=== PATIENT | female | born 1960 | race Caucasian/White ===

== ENCOUNTER 2019-05-21 05:54 | Day surgery (SDC) | payer OTHER ==
[2019-05-21] MEDS ORDERED: fentaNYL 100 MCG/2 ML SDV IV ONE ×3 (05:55→06:58)
[2019-05-21] MEDS ORDERED: Midazolam 1 MG/ML 2 ML SDV IV ONE ×7 (05:55→07:09)
[2019-05-21] MEDS ORDERED: Dextrose 5%-0.45% NaCl 1,000 ML IV SCH (06:15)
[2019-05-21] MEDS ORDERED: Midazolam 1 MG/ML 2 ML SDV ONE (06:26)
[2019-05-21] MEDS ORDERED: fentaNYL 100 MCG/2 ML SDV ONE (06:26)
--- NOTE | 2019-05-21 14:26 | OR ---
DATE: 05/21/2019 PREOPERATIVE DIAGNOSES: Screening colonoscopy and constipation. POSTOPERATIVE DIAGNOSES: Screening colonoscopy and constipation. PROCEDURE: Total colonoscopy. ANESTHESIA: Conscious sedation with IV Versed and fentanyl. SPECIMEN: None. OPERATIVE FINDINGS: Normal colonoscopy. RECOMMENDATION: Followup colonoscopy in 10 years for screening. PROCEDURE IN DETAIL: After adequate preparation, a colonoscope was inserted into the rectum. After multiple maneuvers; however, I could not negotiate the lower portion of the sigmoid just above the rectosigmoid junction. Multiple maneuvers were tried, and I simply could not advance the scope safely. I changed this to a pediatric scope and was able to with some manipulation get around this fixed site in the sigmoid. At that point, then the scope was easily advanced all the way to the cecum. Confirmation of the cecum was made by visualization of the ileocecal valve and palpation in the right lower quadrant. There was also a visible light in the right lower quadrant. The bowel prep was very good. On withdrawal of the scope, no abnormalities were noted. A photograph of the ileocecal valve had been taken. Anal and rectal examination reveals large external hemorrhoids. No significant internal hemorrhoids. Air was suctioned from the colon and the scope removed. [facility] /[id number]
== END 2019-05-21 09:21 | disposition home or self-care (01) ==
LOC: DL.ENDO 05:54
PROVIDERS: ATTEND Surgery
DX: K59.00 Constipation, unspecified (principal); K64.4 Residual hemorrhoidal skin tags; Z85.828 Personal history of other malignant neoplasm of skin; Z92.21 Personal history of antineoplastic chemotherapy; Z92.3 Personal history of irradiation; Z79.899 Other long term (current) drug therapy
CPT/HCPCS: G0121; J2250; J3010; J7042

== ENCOUNTER 2020-09-21 06:50 | Day surgery (SDC) | payer OTHER ==
[~2020-09-21 06:50] MED LIST: Dextrose 5%-0.45% NaCl 1,000 ML IV SCH; Midazolam 1 MG/ML 2 ML SDV ONE; fentaNYL 100 MCG/2 ML SDV ONE
[2020-09-21] MEDS ORDERED: Midazolam 1 MG/ML 2 ML SDV IV ONE ×8 (06:51→08:05)
[2020-09-21] MEDS ORDERED: fentaNYL 100 MCG/2 ML SDV IV ONE ×4 (06:51→08:03)
[2020-09-21] MEDS ORDERED: Midazolam 1 MG/ML 2 ML SDV ONE (08:05)
--- NOTE | 2020-09-21 13:22 | OR ---
DATE: 09/21/2020 PREOPERATIVE DIAGNOSIS: Rectal bleeding and history of prior anal cancer. POSTOPERATIVE DIAGNOSIS: Rectal bleeding and history of prior anal cancer. PROCEDURE: Total colonoscopy. ANESTHESIA: Conscious sedation with IV Versed and fentanyl. SPECIMEN: None. OPERATIVE FINDINGS: External hemorrhoids, otherwise normal. RECOMMENDATION: Might consider a hemorrhoidectomy with this patient. She does not have significant internal hemorrhoids and the examination did not reveal any unusual areas that I felt needed biopsy. The rest of the colonoscopy is normal and her followup should be 5 to 10 years. INDICATION FOR PROCEDURE: This 60-year-old female has a history of anal cancer and now has new onset of rectal bleeding with bowel function. PROCEDURE IN DETAIL: After adequate preparation, a colonoscope was inserted into the rectum. This was quite difficult to get through a fixed area of the sigmoid. This is an external fixation adhesion probably from her prior surgeries, but I was able to get the scope finally through the sigmoid and then it was easy to pass the scope all the way to the cecum. Confirmation of the cecum was made by visualization of the ileocecal valve. The bowel prep was excellent. On withdrawal of the scope, no abnormalities were noted. I took a photograph of the ileocecal valve and the anal canal. Air was suctioned from the colon, and the scope removed. [facility] /[id number]
== END 2020-09-21 10:35 | disposition home or self-care (01) ==
LOC: DL.ENDO 06:50
PROVIDERS: ATTEND Surgery
DX: K62.5 Hemorrhage of anus and rectum (principal); K64.4 Residual hemorrhoidal skin tags; Z85.048 Personal history of other malignant neoplasm of rectum, rectosigmoid junction, and anus; Z79.899 Other long term (current) drug therapy; Z01.812 Encounter for preprocedural laboratory examination; Z20.822 Contact with and (suspected) exposure to COVID-19
CPT/HCPCS: 45378; 87635; J2250; J3010; J7042; U0002

== ENCOUNTER 2020-11-17 06:53 | Day surgery (SDC) | payer OTHER ==
[~2020-11-17 06:53] MED LIST changes: -Dextrose 5%-0.45% NaCl 1,000 ML IV SCH; +Lactated Ringers 1,000 ML IV SCH; -Midazolam 1 MG/ML 2 ML SDV ONE; -fentaNYL 100 MCG/2 ML SDV ONE
[2020-11-17] MEDS ORDERED: Lactated Ringers 1,000 ML IV ONE (06:54)
[2020-11-17] MEDS ORDERED: Lidocaine 1% with EPINEPHrine 1:100,000 20 ML MDV ONE ×2 (06:54→08:01)
[2020-11-17] MEDS ORDERED: fentaNYL 100 MCG/2 ML SDV IV ONE (06:54)
[2020-11-17] MEDS ORDERED: Ondansetron 4 MG/2 ML SDV IV ONE (06:54)
[2020-11-17] MEDS ORDERED: Ketorolac 30 MG/ML SDV IVPUSH ONE (06:54)
[2020-11-17] MEDS ORDERED: Propofol 200 MG/20 ML SDV IV ONE (06:54)
[2020-11-17] MEDS ORDERED: Dexamethasone 4 MG/ML SDV IV ONE (06:54)
[2020-11-17] MEDS ORDERED: Midazolam 1 MG/ML 2 ML SDV IV ONE (06:54)
[2020-11-17] MEDS: Lactated Ringers 1,000 ML IV SCH ×2 (07:22→07:53)
[2020-11-17] MEDS ORDERED: Lidocaine 1% with EPINEPHrine 1:100,000 30 ML MDV INJECT ONE (08:41)
--- NOTE | 2020-11-17 10:26 | OR ---
DATE: 11/17/2020 PREOPERATIVE DIAGNOSIS: External hemorrhoids. POSTOPERATIVE DIAGNOSIS: External hemorrhoids. PROCEDURE: External hemorrhoidectomy. ANESTHESIA: Local plus MAC. SPECIMEN: Hemorrhoid. INDICATIONS FOR PROCEDURE: This 60-year-old female has multiple external hemorrhoids. She also has a history of anal cancer, undergoing chemotherapy protocol for this. She has some rectal bleeding, but underwent a recent colonoscopy which was normal. PROCEDURE IN DETAIL: After adequate preparation, there were 2 anterior large groups of hemorrhoids that were able to be excised as 1 specimen. 1% Xylocaine was used to infiltrate a perianal block. The external skin was cut in a thalia shape and then carried down into the upper part of the anal canal. The entire hemorrhoid complex were removed as 1. Hemostasis was controlled with cautery. 4-0 Vicryl sutures were used to close the deeper layer of tissue and the skin was closed with interrupted 4-0 Vicryl. This seemed to be adequate. There is one posterior small hemorrhoid that is left. I decided to leave that since this seems to be really adequate to clear this up. The patient was taken to recovery room. [facility] /[id number]
== END 2020-11-17 10:40 | disposition home or self-care (01) ==
LOC: DL.SDS 06:53
PROVIDERS: ATTEND Surgery
DX: K64.4 Residual hemorrhoidal skin tags (principal); I10 Essential (primary) hypertension; E03.9 Hypothyroidism, unspecified; E66.9 Obesity, unspecified; Z68.30 Body mass index [BMI] 30.0-30.9, adult; Z01.812 Encounter for preprocedural laboratory examination; Z20.822 Contact with and (suspected) exposure to COVID-19; Z85.048 Personal history of other malignant neoplasm of rectum, rectosigmoid junction, and anus; Z79.890 Hormone replacement therapy; Z79.899 Other long term (current) drug therapy
CPT/HCPCS: 00902; J1100; J1885; J2250; J2405; J2704; J3010; J7120; U0002

== ENCOUNTER 2021-05-22 17:26 | Emergency (ER) | payer OTHER ==
--- NOTE | 2021-05-22 20:17 | EDM.PDOC ---
ED HPI GENERAL MEDICAL PROBLEM - General Chief Complaint: Respiratory Problem Stated Complaint: COVID TEST Time Seen by Provider: 05/22/21 19:30 Source of Information: Reports: Patient, RN History Limitations: Reports: No Limitations - History of Present Illness INITIAL COMMENTS - FREE TEXT/NARRATIVE: ED requesting COVID testing, Cough only sx but exposure through grandchild who was exposed at school. No fever No nausea or vomiting. Onset sx 3 days. Bilateral Generalized Pain Score (Numeric/FACES): 4 - Related Data Allergies Allergy/AdvReac Type Severity Reaction Status Date / Time No Known Allergies Allergy Verified 11/17/20 07:21 Home Meds: Home Meds Levothyroxine [Sythroid] 100 mcg PO DAILY 07/28/18 [History] Venlafaxine HCl [Venlafaxine ER] 75 mg PO TID 07/28/18 [History] buPROPion [buPROPion XL] 150 mg PO BID 07/28/18 [History] hydroCHLOROthiazide [Hydrochlorothiazide] 25 mg PO DAILY 07/28/18 [History] Past Medical History HEENT History: Reports: Impaired Vision, Other (See Below) Other HEENT History: WEARS CONTACT LENS Cardiovascular History: Reports: Hypertension Respiratory History: Reports: None Gastrointestinal History: Reports: Chronic Constipation, Chronic Diarrhea, GERD, Hemorrhoids, Other (See Below) Other Gastrointestinal History: urgency with diarrhea Genitourinary History: Reports: None 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: Musculoskeletal History: Reports: None, Fracture, Other (See Below) Other Musculoskeletal History: CONTACTURE IN [place] Neurological History: Reports: None Psychiatric History: Reports: Autism, Depression Endocrine/Metabolic History: Reports: Hypothyroidism Hematologic History: Reports: None Immunologic History: Reports: None Oncologic (Cancer) History: Reports: Other (See Below) Other Oncologic History: anal cancer Dermatologic History: Reports: None - Infectious Disease History Infectious Disease History: Reports: Chicken Pox, Measles, Mumps - Past Surgical History Head Surgeries/Procedures: Reports: None HEENT Surgical History: Reports: None Cardiovascular Surgical History: Reports: None Respiratory Surgical History: Reports: None GI Surgical History: Reports: Cholecystectomy, Colonoscopy Female Surgical History: Reports: Breast Biopsy, Breast Reduction, Hysterectomy, Other (See Below) Other Female Surgeries/Procedures: granulated cyst to R) breast Endocrine Surgical History: Reports: None Neurological Surgical History: Reports: None Musculoskeletal Surgical History: Reports: None Oncologic Surgical History: Reports: None Dermatological Surgical History: Reports: None Social & Family History - Tobacco Use Tobacco Use Status *Q: Never Tobacco User - Caffeine Use Caffeine Use: Reports: Coffee Caffeine Use Comment: 3 cups daily - Recreational Drug Use Recreational Drug Use: No ED ROS GENERAL - Review of Systems Review Of Systems: Comprehensive ROS is negative, except as noted in HPI. ED EXAM, GENERAL - Physical Exam Exam: See Below Exam Limited By: No Limitations General Appearance: Alert, No Apparent Distress Eye Exam: Bilateral Eye: EOMI Ears: Normal External Exam Nose: Normal Inspection Throat/Mouth: Normal Inspection Head: Atraumatic, Other Neck: Normal Inspection. No: Lymphadenopathy (L), Lymphadenopathy (R) Respiratory/Chest: No Respiratory Distress, Lungs Clear, Normal Breath Sounds, Other (rare dry cough) GI/Abdominal: Normal Bowel Sounds Extremities: Normal Inspection Neurological: Alert, Oriented, Normal Cognition, Normal Gait Psychiatric: Normal Affect, Normal Mood Skin Exam: Warm, Dry, Intact Course - Vital Signs Last Recorded V/S: Last Vital Signs Temp 98.1 F 05/22/21 18:25 Pulse 106 H 05/22/21 18:25 Resp 20 05/22/21 18:25 BP 118/72 05/22/21 18:25 Pulse Ox 98 05/22/21 18:25 - Orders/Labs/Meds Labs: Laboratory Tests 05/22/21 Range/Units 18:05 SARS-CoV-2 RNA (DILIA) Negative (NEGATIVE) Departure - Departure Time of Disposition: 20:14 Disposition: Home, Self-Care 01 Condition: Good Clinical Impression: Cough with exposure to COVID-19 virus - Discharge Information Instructions: COVID-19 Frequently Asked Questions, COVID-19: How to Protect Yourself and Others - CDC, COVID-19: Quarantine vs. Isolation - CDC (08/25/2020) Forms: ED Department Discharge Additional Instructions: symptom management with muccinex/ robitussin for cough increase fluids humidification continue isolation retest later this week at local Drive through or local clinic urgent follow up if SEVERE difficulty breathing limit use of ibuprofen tylenol 500mg every 4 hours as needed for cough Sepsis Event Note (ED) - Evaluation Sepsis Screening Result: No Definite Risk
== END 2021-05-22 20:20 | disposition home or self-care (01) ==
LOC: DL.ED 17:26
DX: R05 Cough (principal); E03.9 Hypothyroidism, unspecified; Z79.899 Other long term (current) drug therapy; Z20.822 Contact with and (suspected) exposure to COVID-19
CPT/HCPCS: 99283; U0002

== ENCOUNTER 2021-06-30 12:07 | Emergency (ER) | payer OTHER ==
[2021-06-30] MEDS ORDERED: Iopamidol 755 Mg/ML 100 ML Bottle IVPUSH ONE (12:09)
--- NOTE | 2021-06-30 12:28 | EDM.PDOC ---
ED HPI GENERAL MEDICAL PROBLEM - General Stated Complaint: TO ER FROM [facility] Time Seen by Provider: 06/30/21 12:27 Source of Information: Reports: Patient, Provider, RN, RN Notes Reviewed History Limitations: Reports: No Limitations - History of Present Illness INITIAL COMMENTS - FREE TEXT/NARRATIVE: Sandrita is a 61 y/o female who presents to the ED from same day surgery following administration of monoclonal antibodies for COVID-19. The patient reports her symptoms began five days ago, including shortness of breath, fatigue, muscle aches, and cough, and have since worsened in that time. She tested positive for a COVID-19 infection yesterday in the clinic. The patient states she did not become more short of breath during or following the monoclonal antibody treatment. She notes her is home with similar symptoms and they have been caring for their four y/o granddaughter who has not yet experienced similar symptoms. She denies fever, shaking chills, vision changes, dizziness, chest pain/pressure, palpitations, nausea, vomiting, abdominal pain, or diarrhea. She has taken no medications for her symptoms. The patient denies tobacco, alcohol, or recreational drug use. - Related Data Allergies Allergy/AdvReac Type Severity Reaction Status Date / Time No Known Allergies Allergy Verified 06/30/21 14:01 Home Meds: Home Meds Venlafaxine HCl [Venlafaxine ER] 75 mg PO TID 07/28/18 [History] hydroCHLOROthiazide [Hydrochlorothiazide] 25 mg PO DAILY 07/28/18 [History] LORazepam [Ativan] 0.5 mg PO ASDIRECTED 06/30/21 [History] Levothyroxine 112 mcg PO ACBREAKFAST 06/30/21 [History] Oxybutynin Chloride [Ditropan Xl] 10 mg PO DAILY 06/30/21 [History] buPROPion HCL [Bupropion HCl Sr] 300 mg PO DAILY 06/30/21 [History] busPIRone HCl [busPIRone] 30 mg PO DAILY 06/30/21 [History] Past Medical History HEENT History: Reports: Impaired Vision, Other (See Below) Other HEENT History: WEARS CONTACT LENS Cardiovascular History: Reports: Hypertension Respiratory History: Reports: None, SOB Gastrointestinal History: Reports: Chronic Constipation, Chronic Diarrhea, GERD, Hemorrhoids, Other (See Below) Other Gastrointestinal History: urgency with diarrhea Genitourinary History: Reports: None 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: Musculoskeletal History: Reports: None, Fracture, Other (See Below) Other Musculoskeletal History: CONTACTURE IN [place] Neurological History: Reports: None Psychiatric History: Reports: Anxiety, Depression Endocrine/Metabolic History: Reports: Hypothyroidism Hematologic History: Reports: None Immunologic History: Reports: None Oncologic (Cancer) History: Reports: Other (See Below) Other Oncologic History: anal cancer Dermatologic History: Reports: None - Infectious Disease History Infectious Disease History: Reports: Chicken Pox, Measles, Mumps, Novel Coronavirus - Past Surgical History Head Surgeries/Procedures: Reports: None HEENT Surgical History: Reports: None Cardiovascular Surgical History: Reports: None Respiratory Surgical History: Reports: None GI Surgical History: Reports: Cholecystectomy, Colonoscopy Other GI Surgeries/Procedures: Hemorrhoidectomy Female Surgical History: Reports: Breast Biopsy, Breast Reduction, Hysterectomy, Other (See Below) Other Female Surgeries/Procedures: granulated cyst to R) breast Endocrine Surgical History: Reports: None Neurological Surgical History: Reports: None Musculoskeletal Surgical History: Reports: None Oncologic Surgical History: Reports: None Dermatological Surgical History: Reports: None Social & Family History - Family History Family Medical History: No Pertinent Family History - Caffeine Use Caffeine Use: Reports: Coffee Caffeine Use Comment: 3 cups daily ED ROS GENERAL - Review of Systems Review Of Systems: Comprehensive ROS is negative, except as noted in HPI. ED EXAM, GENERAL - Physical Exam Exam: See Below Exam Limited By: No Limitations General Appearance: Alert, No Apparent Distress Eye Exam: Bilateral Eye: EOMI, Normal Inspection, PERRL (3mm) Ears: Normal External Exam, Normal Canal, Hearing Grossly Normal, Normal TMs Ear Exam: Bilateral Ear: Auricle Normal, Canal Normal, TM normal Nose: Normal Inspection, Normal Mucosa, No Blood Throat/Mouth: Normal Inspection, Normal Oropharynx, Normal Voice, No Airway Compromise Head: Atraumatic, Normocephalic Neck: Normal Inspection, Supple, Non-Tender, Full Range of Motion. No: Lymphadenopathy (L), Lymphadenopathy (R) Respiratory/Chest: No Respiratory Distress, Lungs Clear, Normal Breath Sounds, No Accessory Muscle Use, Chest Non-Tender. No: Crackles, Rales, Rhonchi, Wheezing Cardiovascular: Normal Peripheral Pulses, Regular Rate, Rhythm, No Gallop, No Murmur, No Rub Peripheral Pulses: 2+: Radial (L), Radial (R) GI/Abdominal: Normal Bowel Sounds, Soft, Non-Tender, No Distention, No Abnormal Bruit, No Mass, Pelvis Stable (Female) Exam: Deferred Rectal (Female) Exam: Deferred Back Exam: Normal Inspection, Full Range of Motion Extremities: Normal Inspection, Normal Range of Motion, Normal Capillary Refill Neurological: Alert, Oriented, CN II-XII Intact, Normal Cognition, Normal Gait, No Motor/Sensory Deficits Psychiatric: Normal Affect, Normal Mood Skin Exam: Warm, Dry, Intact, Normal Color, No Rash. No: Cyanosis, Jaundice, Mottled, Pallor Lymphatic: No Adenopathy Course - Vital Signs Last Recorded V/S: Last Vital Signs Temp 99.6 F 06/30/21 13:53 Pulse 85 06/30/21 13:53 Resp 18 06/30/21 13:53 BP 107/72 06/30/21 13:53 Pulse Ox 100 06/30/21 13:53 - Orders/Labs/Meds Labs: Laboratory Tests 06/30/21 06/30/21 06/30/21 Range/Units 13:37 13:37 13:37 WBC 8.7 (5.0-10.0) 10^3/uL RBC 5.13 (4.2-5.4) 10^6/uL Hgb 13.7 (12.0-16.0) g/dL Hct 40.1 (37.0-47.0) % MCV 78.2 L D (80-100) fL MCH 26.7 L (27.0-34.0) pg MCHC 34.2 (33.0-35.0) g/dL Plt Count 238 D (150-450) 10^3/uL Neut % (Auto) 82.9 H (42.2-75.2) % Lymph % (Auto) 12.7 L (20.5-50.1) % Glenn % (Auto) 4.2 (2-8) % Eos % (Auto) 0.1 L (1.0-3.0) % Baso % (Auto) 0.1 (0.0-1.0) % PT (9.0-12.0) SEC INR (0.9-1.2) APTT (22.0-34.0) SEC D-Dimer, Quantitative (0-400) ng/mL Sodium 133 L D (136-145) mmol/L Potassium 3.3 L (3.5-5.1) mmol/L Chloride 93 L (98-107) mmol/L Carbon Dioxide 28 (21-32) mmol/L Anion Gap 15.3 H (7-13) mEq/L BUN 15 (7-18) mg/dL Creatinine 0.89 (0.55-1.02) mg/dL Est Cr Clr Drug Dosing 54.21 mL/min Estimated GFR (MDRD) > 60 BUN/Creatinine Ratio 16.9 (No establ ref range) Glucose 93 (70-99) mg/dL Lactic Acid 1.3 (0.4-2.0) mmol/L Calcium 8.7 (8.5-10.1) mg/dL Magnesium 2.2 (1.8-2.4) mg/dL Total Bilirubin 1.1 H (0.2-1.0) mg/dL AST 38 H (15-37) U/L ALT 74 H (14-59) U/L Alkaline Phosphatase 96 (46-116) U/L Troponin I High Sens 5 (<=51) pg/mL C-Reactive Protein 12.4 H (0.0-0.9) mg/dL Total Protein 7.4 (6.4-8.2) g/dL Albumin 3.1 L (3.4-5.0) g/dL Globulin 4.3 Albumin/Globulin Ratio 0.72 Amylase 47 (25-115) U/L Lipase 204 (73-393) U/L TSH, Ultra Sensitive 0.18 L (0.36-3.74) uIU/mL Urine Color (YELLOW) Urine Appearance (CLEAR) Urine pH (5.0-9.0) Ur Specific [place] (1.005-1.030) Urine Protein (NEGATIVE) Urine Glucose (UA) (NEGATIVE) Urine Ketones (NEGATIVE) Urine Occult Blood (NEGATIVE) Urine Nitrite (NEGATIVE) Urine Bilirubin (NEGATIVE) Urine Urobilinogen (0.2-1.0) mg/dL Ur Leukocyte Esterase (NEGATIVE) Urine RBC (0-5) /HPF Urine WBC (0-5/HPF) /HPF Ur Epithelial Cells (NOT SEEN) /HPF 10/22/21 10/22/21 Range/Units 13:37 14:09 WBC (5.0-10.0) 10^3/uL RBC (4.2-5.4) 10^6/uL Hgb (12.0-16.0) g/dL Hct (37.0-47.0) % MCV (80-100) fL MCH (27.0-34.0) pg MCHC (33.0-35.0) g/dL Plt Count (150-450) 10^3/uL Neut % (Auto) (42.2-75.2) % Lymph % (Auto) (20.5-50.1) % Glenn % (Auto) (2-8) % Eos % (Auto) (1.0-3.0) % Baso % (Auto) (0.0-1.0) % PT 10.9 (9.0-12.0) SEC INR 1.1 (0.9-1.2) APTT 26.4 (22.0-34.0) SEC D-Dimer, Quantitative 209 (0-400) ng/mL Sodium (136-145) mmol/L Potassium (3.5-5.1) mmol/L Chloride (98-107) mmol/L Carbon Dioxide (21-32) mmol/L Anion Gap (7-13) mEq/L BUN (7-18) mg/dL Creatinine (0.55-1.02) mg/dL Est Cr Clr Drug Dosing mL/min Estimated GFR (MDRD) BUN/Creatinine Ratio (No establ ref range) Glucose (70-99) mg/dL Lactic Acid (0.4-2.0) mmol/L Calcium (8.5-10.1) mg/dL Magnesium (1.8-2.4) mg/dL Total Bilirubin (0.2-1.0) mg/dL AST (15-37) U/L ALT (14-59) U/L Alkaline Phosphatase (46-116) U/L Troponin I High Sens (<=51) pg/mL C-Reactive Protein (0.0-0.9) mg/dL Total Protein (6.4-8.2) g/dL Albumin (3.4-5.0) g/dL Globulin Albumin/Globulin Ratio Amylase (25-115) U/L Lipase (73-393) U/L TSH, Ultra Sensitive (0.36-3.74) uIU/mL Urine Color Yellow (YELLOW) Urine Appearance Clear (CLEAR) Urine pH 7.0 (5.0-9.0) Ur Specific [place] 1.010 (1.005-1.030) Urine Protein Negative (NEGATIVE) Urine Glucose (UA) Negative (NEGATIVE) Urine Ketones 40 H (NEGATIVE) Urine Occult Blood Trace-intact H (NEGATIVE) Urine Nitrite Negative (NEGATIVE) Urine Bilirubin Negative (NEGATIVE) Urine Urobilinogen 0.2 (0.2-1.0) mg/dL Ur Leukocyte Esterase Negative (NEGATIVE) Urine RBC 0-5 (0-5) /HPF Urine WBC 0-5 (0-5/HPF) /HPF Ur Epithelial Cells Few (NOT SEEN) /HPF Meds: Medications Discontinued Medications Generic Name Dose Route Start Last Admin Trade Name Freq PRN Reason Stop Dose Admin Dexamethasone 6 mg 06/30/21 14:57 06/30/21 15:22 Dexamethasone 4 Mg/Ml Sdv IVPUSH 06/30/21 14:58 6 mg ONETIME ONE Administration Iopamidol 100 ml 06/30/21 12:09 06/30/21 12:35 Iopamidol 755 Mg/Ml 100 Ml Bottle IVPUSH 06/30/21 12:10 80 ml ONETIME ONE Administration - Radiology Interpretation Free Text/Narrative:: [facility] Final Radiology Report Call: [phone] assistance Online chat: [email or web address] Name: SANDRITA BACK Age: 61Years F Date: 06/30/2021 SSN: -- : 1960 Study: CT CHEST W CONT Requesting Physician: Shobha Lara Images: [id number] Addl Studies: Provided Clinical History: r/o pulmonary embolism Contrast: With Contrast Medium: ISOVUE 370 Contrast Amount: 80 mL Contrast Method: Intravenous (IV) Page 1 of 2 PROCEDURE INFORMATION: Exam: CT Chest With Contrast; Diagnostic Exam date and time: 06/30/2021 12:25 PM Age: 61 years old Clinical indication: Shortness of breath; Additional info: R/O pulmonary embolism TECHNIQUE: Imaging protocol: Diagnostic computed tomography of the chest with contrast. Radiation optimization: All CT scans at this facility use at least one of these dose optimization techniques: automated exposure control; mA and/or kV adjustment per patient size (includes targeted exams where dose is matched to clinical indication); or iterative reconstruction. Contrast material: ISOVUE 370; Contrast volume: 80 ml; Contrast route: INTRAVENOUS (IV); COMPARISON: No relevant prior studies available. FINDINGS: Lungs: Scattered ground-glass airspace opacities in both lungs. No masses. Pleural spaces: Unremarkable. No pneumothorax. No pleural effusion. Heart: Unremarkable. No cardiomegaly. No pericardial effusion. Aorta: Unremarkable. No aortic aneurysm. Lymph nodes: Unremarkable. No enlarged lymph nodes. Bones/joints: Unremarkable. No acute fracture. Soft tissues: Unremarkable. IMPRESSION: Multifocal pneumonitis concerning for :. No evidence of acute PE. Thank you for allowing us to participate in the care of your patient. Dictated and Authenticated by: Bo Pope MD 06/30/2021 1:11 PM Central Time ([place] & [place]) - Re-Assessments/Exams Free Text/Narrative Re-Assessment/Exam: 06/30/21 CT chest w obtained to r/o PE. Findings of examination, lab work, and imaging reviewed with patient. Will treat with dexamethasone. Supportive cares discussed. Patient instructed to follow up with primary care provider following quarantine regarding todays visit. Red flag signs and symptoms which would warrant immediate reevaluation reviewed. Patient verbalized understanding and agreement with the plan of care. Departure - Departure Time of Disposition: 14:58 Disposition: Home, Self-Care 01 Condition: Fair Clinical Impression: Pneumonia due to COVID-19 virus, Hypokalemia - Discharge Information *PRESCRIPTION DRUG MONITORING PROGRAM REVIEWED*: Not Applicable *COPY OF PRESCRIPTION DRUG MONITORING REPORT IN PATIENT PATRICE: Not Applicable Instructions: COVID-19 Frequently Asked Questions, 10 Things You Can Do to Manage Your COVID-19 Symptoms at Home - [facility] (03/24/2021), COVID-19: How to Protect Yourself and Others - CDC, COVID-19: What to Do If You Are Sick- [facility] () Referrals: PCP,None [Primary Care Provider] - Forms: ED Department Discharge Additional Instructions: Rx: Dexamethasone Rx: Jovanna Perkins 1.) Rest. 2.) Follow up with your primary care provider regarding today's visit following quarantine. 3.) Return to the emergency department with any persistent or worsening symptoms despite medications.
--- NOTE | 2021-06-30 13:11 | CT ---
PROCEDURE INFORMATION: Exam: CT Chest With Contrast; Diagnostic Exam date and time: 06/30/2021 12:25 PM Age: 61 years old Clinical indication: Shortness of breath; Additional info: R/O pulmonary embolism TECHNIQUE: Imaging protocol: Diagnostic computed tomography of the chest with contrast. Radiation optimization: All CT scans at this facility use at least one of these dose optimization techniques: automated exposure control; mA and/or kV adjustment per patient size (includes targeted exams where dose is matched to clinical indication); or iterative reconstruction. Contrast material: ISOVUE 370; Contrast volume: 80 ml; Contrast route: INTRAVENOUS (IV); COMPARISON: No relevant prior studies available. FINDINGS: Lungs: Scattered ground-glass airspace opacities in both lungs. No masses. Pleural spaces: Unremarkable. No pneumothorax. No pleural effusion. Heart: Unremarkable. No cardiomegaly. No pericardial effusion. Aorta: Unremarkable. No aortic aneurysm. Lymph nodes: Unremarkable. No enlarged lymph nodes. Bones/joints: Unremarkable. No acute fracture. Soft tissues: Unremarkable. IMPRESSION: Multifocal pneumonitis concerning for :. No evidence of acute PE.
[2021-06-30 14:12] LABS: PTT,PARTIAL THROMBOPLSTIN TIME 26.4 SEC (22.0-34.0)
[2021-06-30 14:14] LABS: ANION GAP 15.3 mEq/L (7-13); CHLORIDE,CL 93 mmol/L (98-107); SODIUM,NA 133 mmol/L (136-145)
[2021-06-30] MEDS ORDERED: Dexamethasone 4 MG/ML SDV IVPUSH ONE (14:57)
== END 2021-06-30 16:05 | disposition home or self-care (01) ==
LOC: DL.ED 12:07
DX: U07.1 COVID-19 (principal); J12.82 Pneumonia due to coronavirus disease 2019; E87.6 Hypokalemia; I10 Essential (primary) hypertension; E03.9 Hypothyroidism, unspecified; Z79.899 Other long term (current) drug therapy
CPT/HCPCS: 36415; 71260; 80053; 81001; 82150; 83605; 83690; 83735; 84443; 84484; 85025; 85379; 85610; 85730; 86140; 96374; 99285-25; J1100; Q9967